=== PATIENT | male | born 1995 | race Caucasian/White ===

== ENCOUNTER 2016-05-16 21:00 | Emergency (ER) | payer SELFPAY ==
[2016-05-16 20:01] LABS: WBC (NOT ORDERED) (RFLEX) 0 (0-5)
[2016-05-16 20:05] LABS: BASOPHILS 0.6 %; BASOPHILS ABSOLUTE 0.03 10/3/uL (0.0-0.16); EOSINOPHILS 1.2 %; EOSINOPHILS ABSOLUTE 0.06 10/3/uL (0.0-0.53); HEMOGLOBIN 14.9 g/dL (13.6-17.8); LYMPHOCYTES 56.8 %; LYMPHOCYTES ABSOLUTE 2.91 10/3/uL (0.67-4.30); MANUAL DIFF NO %; MEAN CORPUS HGB CONC 36.3 g/dL (32.0-36.0); MEAN CORPUSCULAR HEMOGLOB 30.2 pg (26.0-34.0); MEAN PLATELET VOLUME 9.7 fL (9.2-13.0); MONOCYTES 8.8 %; MONOCYTES ABSOLUTE 0.45 10/3/uL (0.21-1.20); NEUTROPHILS 32.6 %; NEUTROPHILS ABSOLUTE 1.67 10/3/uL (2.02-8.40); PLATELET COUNT 200 10/3/uL (150-400); RBC DISTRIBUTION WIDTH 12.3 % (12.0-16.0); RED CELL COUNT 4.94 10/6/uL (4.7-6.1); WHITE BLOOD CELLS 5.1 10/3/uL (4.5-10.5)
[2016-05-16 20:08] LABS: ASCORBIC ACID (UR NOT ORDER) NEG (NEG); BILIRUBIN, URINE NEGATIVE (NEG); ER URINALYSIS TAT 0 Hrs 08 Mins; KETONE, URINE 20 MG/DL (NEG); LEUKOCYTE ESTERASE(NOT OR NEG (NEG); NITRITE (URINE) NEG (NEG)
[2016-05-16 20:19] LABS: A/G RATIO 1.1 (0.7-1.9); ALBUMIN 3.8 G/DL (3.5-5.0); ALKALINE PHOSPHATASE 129 U/L (45-117); BUN (BLOOD UREA NITROGEN) 25 MG/DL (6-23); CHLORIDE, SERUM 90 MMOL/L (96-112); CO2 (CARBON DIOXIDE) 31 MMOL/L (24-34); CREATININE 1.31 MG/DL (0.70-1.30); GFR AFRICAN AMERICAN 89 ML/MIN (>=60); GFR NON AFRICAN AMERICAN 77 ML/MIN (>=60); GLOBULIN 3.4 G/DL (2.5-4.1); GLUCOSE, SERUM 258 MG/DL (60-99); POTASSIUM, SERUM 3.7 MMOL/L (3.5-5.3); SGOT(AST) 16 U/L (5-40); SGPT(ALT) 31 U/L (5-65); SODIUM, SERUM 135 MMOL/L (135-148); TOTAL BILIRUBIN 0.8 MG/DL (0-1.2); TOTAL PROTEIN 7.2 G/DL (6.0-8.5)
[~2016-05-16 21:00] MED LIST: ACET500CAP PO; APIDRA SC; CELEXA20 PO; KDUR20 PO; LANTUS SC; LANTUSCART SC; LEXAPRO5 MG; LIPITOR20 PO; MAGOX4 PO; MCZ25 PO; NOVOLOG; NOVOLOG SC
[2016-05-17 00:22] LABS: ACETONE NEG
[2016-05-17 00:25] LABS: ALLENS TEST Pos; BE (BASE EXCESS) 3.6 MEQ/L (0 +/- 2.5); CARBOXYHEMOGLOBIN 0.8 % (0-3); HCO3 (ACTUAL BICARBONATE) 27.8 MEQ/L (23-27); HEMOBLOGIN CONTENT 15.5 G/DL (14-18); INSTRUMENT SERIAL # 8087; METHEMOGLOBIN 0.4 % (0-3); O2 CONTENT 20.7 VOL% (18-24); OPERATOR ID 334499; PCO2 (CO2 TENSION) 40 MMHG (35-45); PO2 (O2 TENSION) 80 MMHG (79-93); SAMPLE Arterial; pH 7.46 (7.37-7.43)
[2016-05-17 00:47] LABS: TROPONIN I <0.02 NG/ML (<0.05)
== END 2016-05-17 01:20 | disposition home or self-care (01) ==
LOC: ER 21:00
PROVIDERS: Emergency Medicine
DX: F41.9 Anxiety disorder, unspecified (principal); E11.9 Type 2 diabetes mellitus without complications; Z88.8 Allergy status to other drugs, medicaments and biological substances; Z79.4 Long term (current) use of insulin
CPT/HCPCS: 36600; 71010; 80053; 81001; 82009; 82805; 82962; 84484; 85025; 99285

== ENCOUNTER 2016-06-21 08:54 | Inpatient (IN) | payer SELFPAY ==
--- NOTE | ~2016-06-21 | DS ---
Discharge Summary [facility] [address] [place]. [address] NAME: CARRILLO GOTTLIEB : 89 STATUS : DIS IN PAT#: [id number] AGE: 21 ADM/REG DATE : 06/21/16 MR#: [id number] REPORT SERV DATE: 06/26/16 DICTATED BY: ASIF EDDY DATE: 06/25/16 REPORT STATUS : Draft TRANSCRIBED BY: MODL DATE: 06/25/16 ADMISSION DATE: 06/21/2016 DISCHARGE DATE: 06/25/2016 CHIEF COMPLAINT ON ADMISSION: Diabetic ketoacidosis. DISCHARGING DIAGNOSES: 1. Type 1 diabetes with diabetic ketoacidosis. 2. Thrombocytopenia, mild. HISTORY OF PRESENT ILLNESS: Please see full H and P by Dr. Collins for details regarding initial presentation. HOSPITAL COURSE: 1. DKA. The patient had had some nausea and vomiting, held his basal insulin. He does have a history of type 1 diabetes. He was admitted to the ICU briefly, then transferred out of the ICU. He had appropriate treatment per DKA protocols. Of note, his CO2 on admission was 3, which promptly after treatments with IV fluids and bicarbonate has been stable. His initial pH on arrival was 7.35. Glucose was 1060. There have been issues with him on being able to afford insulin pumps in the past. His primary care physician has worked with him. Diabetes Education also saw him here. His A1c is 12.1. Cost has been the issue. floor worker transfer bay will check, but it seems like best option currently would be to check with companies. In the interim, we will send him home on his previous insulin regimen with recommendation of tight control on that. He has not been the best compliance with regular eating as per recommendations for diabetes. Diabetes Education did talk with him about this. 2. Acute renal failure due to DKA. The patient's creatinine was 2.72 on admission. It is 0.60 at this time. 3. Mild thrombocytopenia. The patient's platelets were 400 on admission. After appropriate treatment, did come down to the low 100. I doubt this is any abnormal reaction. A HIT panel was sent, although his platelets have been stable for the past three days with some mild fluctuation, although they have bounced back up to 118. He has been down to the 127 in the past, so I doubt this is a reaction. Again, this patient has been stable on the with platelets of 120, yesterday 94, and today 118. DISCHARGE MEDICATIONS: Same as admission. FOLLOWUP: Primary care, Dr. Connell. On the time of discharge, white blood cell count 3.9, hemoglobin 12.9, platelet count of 118. Time spent on this discharge is greater than 30 minutes. Discharge Summary [address] [address] NAME: CARRILLO GOTTLIEB : 89 STATUS : DIS IN PAT#: [id number] AGE: 21 ADM/REG DATE : 06/21/16 MR#: [id number] REPORT SERV DATE: 06/26/16 DICTATED BY: ASIF EDDY DATE: 06/25/16 REPORT STATUS : Draft TRANSCRIBED BY: JESSICA DATE: 06/25/16 DON/JESSICA Asif Eddy MD / [id number] CC: MD Evens Fenton M.D.
--- NOTE | ~2016-06-21 | HP ---
History And Physical [place] [id number] [facility] [place]. [address] NAME: CARRILLO GOTTLIEB : 89 STATUS : ADM IN [facility]#: [id number] AGE: 21 ADM/REG DATE : 06/21/16 MR#: [id number] REPORT SERV DATE: 06/21/16 DICTATED BY: TANIA CUNNINGHAM DATE: 06/21/16 REPORT STATUS : Draft TRANSCRIBED BY: JESSICA DATE: 06/21/16 DATE OF ADMISSION: 06/21/2016 TIME: 0957 hours in ER bed 2. He is a 21-year-old white male with type 1 insulin diabetes, who over the past 2 days, has been not feeling well with some nausea and vomiting. He came in today with evidence of diabetic ketoacidosis with a blood sugar of greater than 1200, pH was 6.98. According to his grandfather, he found him on the floor this morning and brought him into the hospital. PAST MEDICAL HISTORY: As noted above, he has had multiple admissions for diabetic ketoacidosis, most recently in January this past year. He takes 80 units total Lantus per day plus mealtime insulin compliance. FAMILY HISTORY: Positive for diabetes. REVIEW OF SYSTEMS: Otherwise negative and noncontributory. He does not drink, smoke, or use drugs. PHYSICAL EXAMINATION: VITAL SIGNS: Currently, his vital signs are blood pressure 106/47, pulse 127, temperature 97.3, and sats 100. GENERAL: The patient is a thin-appearing male, in acute distress. HEENT: Head is normocephalic. Sclerae and conjunctivae are clear. NECK: Supple. Good upstroke. No bruits. CHEST: Clear to auscultation and percussion. No wheezing or rhonchi. CARDIAC: Tachycardic. ABDOMEN: Soft and nontender. No masses or organomegaly. EXTREMITIES: No clubbing, cyanosis, or edema. Pulses are palpable. NEUROLOGIC: Grossly intact. LABORATORY DATA: His laboratory shows sodium 136, potassium 5.3, chloride 93, CO2 of 3, BUN 42, creatinine 2.72, up from 1.21 on 05/16. Glucose 1060. Calcium 8.5, total protein 7.3, total bilirubin 0.8, alkaline phosphatase 126, ALT 40, and AST 16. CBC: H and H 15.6 and 47.4, white count 23,700, 402 platelets, he has 75 polys, 6 bands. His pH was 6.98, pCO2 of 10, PO2 of 155. Base deficit -29 bicarb 2.4, ionized calcium 4.40. The anion gap is 40. IMPRESSION: Severe diabetic ketoacidosis, possible lactic acidosis as well. We will initiate IV hydration and insulin and given 2 amps of bicarb. Chest x-ray is clear, shows normal size heart. RP/MODL Tania History And Physical [address] [address] NAME: CARRILLO GOTTLIEB : 89 STATUS : ADM IN [facility]#: [id number] AGE: 21 ADM/REG DATE : 06/21/16 MR#: [id number] REPORT SERV DATE: 06/21/16 DICTATED BY: TANIA CUNNINGHAM DATE: 06/21/16 REPORT STATUS : Draft TRANSCRIBED BY: MODL DATE: 06/21/16 Anali Cunningham / [id number] CC: Tania Cunningham M.D.
[2016-06-21 09:00] LABS: BASOPHILS 0.1 %; BASOPHILS ABSOLUTE 0.03 10/3/uL (0.0-0.16); EOSINOPHILS 0 %; EOSINOPHILS ABSOLUTE 0.01 10/3/uL (0.0-0.53); HEMOGLOBIN 15.6 g/dL (13.6-17.8); LYMPHOCYTES 12.4 %; LYMPHOCYTES ABSOLUTE 2.94 10/3/uL (0.67-4.30); MEAN CORPUSCULAR HEMOGLOB 30.8 pg (26.0-34.0); MEAN PLATELET VOLUME 9.8 fL (9.2-13.0); MONOCYTES 7.8 %; MONOCYTES ABSOLUTE 1.85 10/3/uL (0.21-1.20); NEUTROPHILS 78.7 %; NEUTROPHILS ABSOLUTE 18.67 10/3/uL (2.02-8.40); RBC DISTRIBUTION WIDTH 14.7 % (12.0-16.0); RED CELL COUNT 5.06 10/6/uL (4.7-6.1)
[2016-06-21 09:03] LABS: ER CBC TAT 0 Hrs 12 Mins; HEMATOCRIT 47.4 % (40.0-51.0); MEAN CORPUS HGB CONC 32.9 g/dL (32.0-36.0); MEAN CORPUSCULAR VOLUME 93.7 fL (80-100); PLATELET COUNT 402 10/3/uL (150-400); WHITE BLOOD CELLS 23.7 10/3/uL (4.5-10.5)
[2016-06-21 09:04] LABS: IMMATURE GRANULOCYTES ABSOLUTE 0.24 10/3/uL (0.0-0.11); MANUAL DIFF NO %
[2016-06-21 09:14] LABS: ALBUMIN 3.7 G/DL (3.5-5.0); ALKALINE PHOSPHATASE 126 U/L (45-117); CALCIUM, SERUM 8.5 MG/DL (8.5-10.4); CHLORIDE, SERUM 93 MMOL/L (96-112); DIRECT BILIRUBIN 0.2 MG/DL (0.0-0.4); INDIRECT BILIRUBIN(NOT ORDER) 0.6 MG/DL (0.1-0.9); SGOT(AST) 16 U/L (5-40); SGPT(ALT) 40 U/L (5-65); SODIUM, SERUM 136 MMOL/L (135-148); TOTAL BILIRUBIN 0.8 MG/DL (0-1.2); TOTAL PROTEIN 7.3 G/DL (6.0-8.5)
[2016-06-21 09:16] LABS: BUN (BLOOD UREA NITROGEN) 42 MG/DL (6-23); CO2 (CARBON DIOXIDE) 3 MMOL/L (24-34); CREATININE 2.72 MG/DL (0.70-1.30); GFR AFRICAN AMERICAN 37 ML/MIN (>=60); GFR NON AFRICAN AMERICAN 32 ML/MIN (>=60); GLUCOSE, SERUM 1060 MG/DL (60-99); POTASSIUM, SERUM 5.3 MMOL/L (3.5-5.3)
[2016-06-21] MEDS ORDERED: *UNABLE3 (09:40)
[2016-06-21 09:42] LABS: BAND NEUTROPHILS 6 %; ER DIFF TAT 0 Hrs 51 Mins; LYMPHOCYTES 10 %; LYMPHOCYTES ABSOLUTE (CALC) 2.37 10/3/uL (0.67-4.30); MONOCYTES 9 %; MONOCYTES ABSOLUTE (CALC) 2.13 10/3/uL (0.21-1.20); PLATELET ESTIMATE SLT INC (ADEQUATE); SEGMENTED NEUTROPHIL (0) 75 %; TOTAL NUCLEATED CELLS 100
[2016-06-21 09:43] LABS: RBC MORPHOLOGY NORM (NORMAL)
[2016-06-21] MEDS ORDERED: DIPHENHYDRAMINE (09:45)
[2016-06-21] MEDS ORDERED: NOVOLOG SC (09:45)
[2016-06-21] MEDS ORDERED: LANTUS SC (09:45)
[2016-06-21] MEDS ORDERED: AMOXICILLIN (09:46)
[2016-06-21] MEDS ORDERED: NAPROXEN (09:46)
[2016-06-21 10:15] LABS: ASCORBIC ACID (UR NOT ORDER) NEG (NEG); BILIRUBIN, URINE NEGATIVE (NEG); ER URINALYSIS TAT 0 Hrs 19 Mins; KETONE, URINE 80 MG/DL (NEG); LEUKOCYTE ESTERASE(NOT OR NEG (NEG); NITRITE (URINE) NEG (NEG); WBC (NOT ORDERED) (RFLEX) 1 (0-5)
[2016-06-21 10:26] LABS: LACTATE 6.5 MMOL/L (0.3-2.4)
[2016-06-21 10:31] LABS: AMPHETAMINES (NOT ORD) NEG (NEG); BARBITURATES (NOT ORDERED NEG (NEG); BENZODIAZEPINES (NOT ORD) NEG (NEG); CANNABINOIDS (THC) NEG (NEG); COCAINE (NOT ORDERED) NEG (NEG); OPIATES NEG (NEG); PHENCYCLIDINE(PCP) NEG (NEG); TRICYCLICS NEG (NEG)
[2016-06-21 13:18] LABS: ALLENS TEST Pos; BE (BASE EXCESS) -15.3 MEQ/L (0 +/- 2.5); CARBOXYHEMOGLOBIN 0.3 % (0-3); HCO3 (ACTUAL BICARBONATE) 7.1 MEQ/L (23-27); HEMOBLOGIN CONTENT 14.3 G/DL (14-18); INSTRUMENT SERIAL # 35151; O2 CONTENT 19.6 VOL% (18-24); OPERATOR ID 31928; PCO2 (CO2 TENSION) 13 MMHG (35-45); PO2 (O2 TENSION) 121 MMHG (79-93); SAMPLE Arterial; pH 7.35 (7.37-7.43)
[2016-06-21 16:40] LABS: BE (BASE EXCESS) -9.4 MEQ/L (0 +/- 2.5); CARBOXYHEMOGLOBIN 0.6 % (0-3); HCO3 (ACTUAL BICARBONATE) 15.2 MEQ/L (23-27); HEMOBLOGIN CONTENT 15.3 G/DL (14-18); INSTRUMENT SERIAL # 35151; METHEMOGLOBIN 0.7 % (0-3); OPERATOR ID 31928; PCO2 (CO2 TENSION) 30 MMHG (35-45); PO2 (O2 TENSION) 21 MMHG (79-93); SAMPLE Venous; pH 7.32 (7.37-7.43)
[2016-06-21 20:19] LABS: INSTRUMENT SERIAL # 35151; OPERATOR ID 13861; SAMPLE Arterial; pH 7.37 (7.37-7.43)
[2016-06-21 20:46] LABS: POTASSIUM, SERUM 3.8 MMOL/L (3.5-5.3)
[2016-06-22 06:29] LABS: CALCIUM, SERUM 8.2 MG/DL (8.5-10.4)
[2016-06-22 06:30] LABS: SODIUM, SERUM 149 MMOL/L (135-148)
[2016-06-22 06:31] LABS: BUN (BLOOD UREA NITROGEN) 16 MG/DL (6-23); CHLORIDE, SERUM 112 MMOL/L (96-112); CO2 (CARBON DIOXIDE) 24 MMOL/L (24-34); CREATININE 1.25 MG/DL (0.70-1.30); GFR AFRICAN AMERICAN 94 ML/MIN (>=60); GFR NON AFRICAN AMERICAN 81 ML/MIN (>=60); GLUCOSE, SERUM 186 MG/DL (60-99); PHOSPHORUS, SERUM 1.2 MG/DL (2.5-4.5); POTASSIUM, SERUM 3.2 MMOL/L (3.5-5.3)
[2016-06-22 07:04] LABS: BASOPHILS 0.2 %; BASOPHILS ABSOLUTE 0.01 10/3/uL (0.0-0.16); EOSINOPHILS 0.2 %; EOSINOPHILS ABSOLUTE 0.01 10/3/uL (0.0-0.53); IMMATURE GRANULOCYTES 0.2 %; IMMATURE GRANULOCYTES ABSOLUTE 0.01 10/3/uL (0.0-0.11); LYMPHOCYTES 30.3 %; LYMPHOCYTES ABSOLUTE 1.93 10/3/uL (0.67-4.30); MEAN CORPUSCULAR HEMOGLOB 30.4 pg (26.0-34.0); MEAN PLATELET VOLUME 8.4 fL (9.2-13.0); MONOCYTES 8.3 %; MONOCYTES ABSOLUTE 0.53 10/3/uL (0.21-1.20); NEUTROPHILS 60.8 %; NEUTROPHILS ABSOLUTE 3.87 10/3/uL (2.02-8.40); RBC DISTRIBUTION WIDTH 14.5 % (12.0-16.0); RED CELL COUNT 4.27 10/6/uL (4.7-6.1)
[2016-06-22 07:13] LABS: HEMATOCRIT 35.7 % (40.0-51.0); MANUAL DIFF NO %; MEAN CORPUS HGB CONC 36.4 g/dL (32.0-36.0); MEAN CORPUSCULAR VOLUME 83.6 fL (80-100); PLATELET COUNT 175 10/3/uL (150-400); WHITE BLOOD CELLS 6.4 10/3/uL (4.5-10.5)
[2016-06-22 17:13] LABS: BUN (BLOOD UREA NITROGEN) 13 MG/DL (6-23); CALCIUM, SERUM 7.9 MG/DL (8.5-10.4); CHLORIDE, SERUM 105 MMOL/L (96-112); CO2 (CARBON DIOXIDE) 26 MMOL/L (24-34); CREATININE 0.96 MG/DL (0.70-1.30); GFR AFRICAN AMERICAN 130 ML/MIN (>=60); GFR NON AFRICAN AMERICAN 112 ML/MIN (>=60); POTASSIUM, SERUM 3.8 MMOL/L (3.5-5.3); SODIUM, SERUM 143 MMOL/L (135-148)
[2016-06-22 17:17] LABS: GLUCOSE, SERUM 277 MG/DL (60-99); PHOSPHORUS, SERUM 1.8 MG/DL (2.5-4.5)
[2016-06-23 04:29] LABS: HEMATOCRIT 35.2 % (40.0-51.0); HEMOGLOBIN 12.4 g/dL (13.6-17.8); MEAN CORPUS HGB CONC 35.2 g/dL (32.0-36.0); MEAN CORPUSCULAR HEMOGLOB 30.1 pg (26.0-34.0); MEAN CORPUSCULAR VOLUME 85.4 fL (80-100); MEAN PLATELET VOLUME 9.1 fL (9.2-13.0); PLATELET COUNT 120 10/3/uL (150-400); RBC DISTRIBUTION WIDTH 14.4 % (12.0-16.0); RED CELL COUNT 4.12 10/6/uL (4.7-6.1); WHITE BLOOD CELLS 3.6 10/3/uL (4.5-10.5)
[2016-06-23 04:32] LABS: MANUAL DIFF YES %
[2016-06-23 04:41] LABS: BUN (BLOOD UREA NITROGEN) 10 MG/DL (6-23); CALCIUM, SERUM 8.2 MG/DL (8.5-10.4); CHLORIDE, SERUM 104 MMOL/L (96-112); CO2 (CARBON DIOXIDE) 27 MMOL/L (24-34); CREATININE 0.99 MG/DL (0.70-1.30); GFR AFRICAN AMERICAN 125 ML/MIN (>=60); GFR NON AFRICAN AMERICAN 108 ML/MIN (>=60); GLUCOSE, SERUM 283 MG/DL (60-99); POTASSIUM, SERUM 3.3 MMOL/L (3.5-5.3); SODIUM, SERUM 144 MMOL/L (135-148)
[2016-06-23 04:44] LABS: PHOSPHORUS, SERUM 2.9 MG/DL (2.5-4.5)
[2016-06-23 04:56] LABS: EOSINOPHILS 1 %; EOSINOPHILS ABSOLUTE (CALC) 0.04 10/3/uL (0.0-0.53); LYMPHOCYTES 60 %; LYMPHOCYTES ABSOLUTE (CALC) 2.16 10/3/uL (0.67-4.30); MONOCYTES 6 %; MONOCYTES ABSOLUTE (CALC) 0.22 10/3/uL (0.21-1.20); NEUTROPHILS ABSOLUTE (CALC) 1.19 10/3/uL (2.02-8.40); PLATELET ESTIMATE SLT DEC (ADEQUATE); RBC MORPHOLOGY ABN (NORMAL); SEGMENTED NEUTROPHIL (0) 33 %; TOTAL NUCLEATED CELLS 100
[2016-06-24 05:08] LABS: HEMATOCRIT 31.9 % (40.0-51.0); HEMOGLOBIN 11.7 g/dL (13.6-17.8); MEAN CORPUS HGB CONC 36.7 g/dL (32.0-36.0); MEAN CORPUSCULAR HEMOGLOB 31.1 pg (26.0-34.0); MEAN CORPUSCULAR VOLUME 84.8 fL (80-100); MEAN PLATELET VOLUME 8.6 fL (9.2-13.0); PLATELET COUNT 94 10/3/uL (150-400); RBC DISTRIBUTION WIDTH 13.6 % (12.0-16.0); RED CELL COUNT 3.76 10/6/uL (4.7-6.1); WHITE BLOOD CELLS 3.5 10/3/uL (4.5-10.5)
[2016-06-24 05:24] LABS: MANUAL DIFF YES %
[2016-06-24 05:26] LABS: BUN (BLOOD UREA NITROGEN) 10 MG/DL (6-23); CALCIUM, SERUM 8.2 MG/DL (8.5-10.4); CHLORIDE, SERUM 102 MMOL/L (96-112); CO2 (CARBON DIOXIDE) 31 MMOL/L (24-34); GFR AFRICAN AMERICAN 147 ML/MIN (>=60); GFR NON AFRICAN AMERICAN 127 ML/MIN (>=60); PHOSPHORUS, SERUM 3.3 MG/DL (2.5-4.5); SODIUM, SERUM 144 MMOL/L (135-148)
[2016-06-24 05:30] LABS: GLUCOSE, SERUM 175 MG/DL (60-99)
[2016-06-24 05:33] LABS: BAND NEUTROPHILS 1 %; EOSINOPHILS 2 %; EOSINOPHILS ABSOLUTE (CALC) 0.07 10/3/uL (0.0-0.53); LYMPHOCYTES 62 %; LYMPHOCYTES ABSOLUTE (CALC) 2.17 10/3/uL (0.67-4.30); MONOCYTES 9 %; MONOCYTES ABSOLUTE (CALC) 0.32 10/3/uL (0.21-1.20); NEUTROPHILS ABSOLUTE (CALC) 0.95 10/3/uL (2.02-8.40); PLATELET ESTIMATE DEC (ADEQUATE); RBC MORPHOLOGY NORM (NORMAL); SEGMENTED NEUTROPHIL (0) 26 %; TOTAL NUCLEATED CELLS 100
[2016-06-25 05:18] LABS: BASOPHILS 0.3 %; BASOPHILS ABSOLUTE 0.01 10/3/uL (0.0-0.16); EOSINOPHILS 1.3 %; EOSINOPHILS ABSOLUTE 0.05 10/3/uL (0.0-0.53); HEMOGLOBIN 12.9 g/dL (13.6-17.8); LYMPHOCYTES 41.2 %; LYMPHOCYTES ABSOLUTE 1.61 10/3/uL (0.67-4.30); MEAN CORPUS HGB CONC 35.6 g/dL (32.0-36.0); MEAN CORPUSCULAR HEMOGLOB 30.4 pg (26.0-34.0); MEAN CORPUSCULAR VOLUME 85.4 fL (80-100); MEAN PLATELET VOLUME 8.7 fL (9.2-13.0); MONOCYTES 7.4 %; MONOCYTES ABSOLUTE 0.29 10/3/uL (0.21-1.20); NEUTROPHILS 49.8 %; NEUTROPHILS ABSOLUTE 1.95 10/3/uL (2.02-8.40); PLATELET COUNT 118 10/3/uL (150-400); RBC DISTRIBUTION WIDTH 13.1 % (12.0-16.0); RED CELL COUNT 4.24 10/6/uL (4.7-6.1); WHITE BLOOD CELLS 3.9 10/3/uL (4.5-10.5)
[2016-06-25 05:19] LABS: HEMATOCRIT 36.2 % (40.0-51.0); MANUAL DIFF NO %
[2016-06-25 05:35] LABS: BUN (BLOOD UREA NITROGEN) 12 MG/DL (6-23); CHLORIDE, SERUM 101 MMOL/L (96-112); CO2 (CARBON DIOXIDE) 34 MMOL/L (24-34); GFR AFRICAN AMERICAN 165 ML/MIN (>=60); GFR NON AFRICAN AMERICAN 143 ML/MIN (>=60); POTASSIUM, SERUM 3.4 MMOL/L (3.5-5.3); SODIUM, SERUM 142 MMOL/L (135-148)
[2016-06-25 05:36] LABS: CALCIUM, SERUM 9.2 MG/DL (8.5-10.4); GLUCOSE, SERUM 91 MG/DL (60-99)
[2016-06-25 13:29] LABS: HEPARIN-INDUCED PLATELET AB NEGATIVE (NEGATIVE); HIT PATIENT O.D. 0.058 OD (0.000-0.299)
== END 2016-06-25 14:05 | disposition home or self-care (01) | DRG 638 ==
LOC: ER 08:54 → CCU 10:10 → 4EA 06-23 12:08
PROVIDERS: Emergency Medicine; Internal Medicine; Internal Medicine Critical Care Medicine
DX: E10.10 Type 1 diabetes mellitus with ketoacidosis without coma (principal); E87.2 Acidosis; N17.9 Acute kidney failure, unspecified; D69.6 Thrombocytopenia, unspecified; F32.9 Major depressive disorder, single episode, unspecified
CPT/HCPCS: 36600; 71010; 80048; 80076; 80305; 81001; 82330; 82803; 82805; 82947; 82962; 83036; 83605; 83735; 84100; 84132; 84145; 84295; 85014; 85025; 86022; 87040; 87641; 93005; 96365; 99291; A9270-GY; J3480

== ENCOUNTER 2016-06-26 21:05 | Emergency (ER) | payer SELFPAY ==
[~2016-06-26 21:05] MED LIST changes: +*UNABLE3; +AMOXICILLIN; +DIPHENHYDRAMINE; +NAPROXEN
== END 2016-06-26 21:10 | disposition home or self-care (01) ==
LOC: ER 21:05
DX: L03.113 Cellulitis of right upper limb (principal); E10.9 Type 1 diabetes mellitus without complications; Z88.8 Allergy status to other drugs, medicaments and biological substances; Z79.4 Long term (current) use of insulin
CPT/HCPCS: 99282